=== PATIENT | male | born 1990 | race African-American/Black ===

== ENCOUNTER 2016-05-07 18:34 | Emergency (ER) | payer MEDICAID ==
[~2016-05-07] VITALS: Ht 188 cm; Wt 135.2 kg
[~2016-05-07 18:34] MED LIST: LEVAQUIN750 MG ORAL; NKM
[2016-05-07 18:43] VITALS: BP 120/81
--- NOTE | 2016-05-07 19:48 | Emergency Room Report ---
History of Present Illness General Chief Complaint: Pain Source: Patient Present Illness HPI 25-year-old male presents emergency department complaining of right-sided chest and shoulder pain 5/10 in severity x2 days. Patient reports that he has been having joint pain in multiple different sites that last 2-3 days and then migrate to an alternate joint x 1 week. Patient denies erythema, joint swelling, recent infection, fevers, chills fall or injury. Patient denies weakness. Patient denies shortness of breath or difficulty breathing. Patient denies past medical history, or rheumatology problems. Patient states that sickle trait runs in his family and he was tested several years ago and has trait but denies history of sickle cell crisis or family history of sickle cell crisis. Patient states that his pain will be resolved completely with over-the- counter 200 mg Motrin however it does return after about 6 hours.Pt states he took Motrin yesterday, and did not take more since. Patient denies dizziness, fatigue. Patient states his pain is exacerbated with palpation or movement of the affected joint. Patient states that he has had intermittent symptoms like this for several years now. patient does report recent upper respiratory illness one week ago that has completely resolved. Denies abdominal pain or rashes, denies dysuria, dark colored urine, hematuria, or eye pain. Denies numbness tingling or loss of sensation or gross motor movements of the extremities, incontinence of bowel or bladder. Denies Palpitations, LOC, AMS, dizziness, Changes in Vision, Sensation, paresthesias, or a sudden severe headache. Pt does report previous hx of daily MEJÍA's however he no longer has daily MEJÍA's. Allergies: Coded Allergies: No Known Allergies (Verified Allergy, Unknown, 01/27/11) Patient History Past Medical History: see triage record Past Surgical History: none Pertinent Family History: none Immunizations: UTD Reviewed Nursing Documentation: PMH: Agreed, PSxH: Agreed Nursing Documentation-PMH Past Medical History: No Stated History Review of Systems All Other Systems: negative except mentioned in HPI Physical Exam Vital Signs Date Time Temp Pulse Resp B/P Pulse Ox O2 Delivery O2 Flow Rate FiO2 05/07/16 18:38 98.1 110 16 120/81 99 Room Air Sp02 EP Interpretation: reviewed, normal, abnormal - Tachycardic on triage, however durring PE pulse is palpated at 96 BPM and ekg shows 99BPM General Appearance: no apparent distress, alert, GCS 15, non-toxic, obese Head: normocephalic, atraumatic Eyes: bilateral eye PERRL, bilateral eye normal inspection ENT: hearing grossly normal, normal pharynx, no angioedema, normal voice Neck: full range of motion, no meningismus, no bony tend, supple/symm/no masses Respiratory: chest non-tender, lungs clear, normal breath sounds, no rhonchi, no respiratory distress, no retraction, no accessory muscle use, no wheezing, speaking full sentences Cardiovascular #1: regular rate, rhythm, no edema Cardiovascular #2: 2+ radial (R), 2+ radial (L) Gastrointestinal: non tender, soft, no guarding, no rebound Rectal: deferred Genitourinary: normal inspection, no CVA tenderness Musculoskeletal: back normal, gait/station normal, normal range of motion, no calf tenderness, tender - TTp to the right anterior chest, the right deltoid, and the upper right side of the back in the trapezius area. no bruising noted, no appreciable bony TTP, pt. has FROM. Pain illiceted more with muscule use rather than from bone areas. no swelling noted. Pt. is NVI Neurologic: alert, oriented x3, responsive, motor strength/tone normal, sensory intact, speech normal Psychiatric: judgement/insight normal, memory normal, mood/affect normal, no suicidal/homicidal ideation Reflexes: 4+ bicep (R), 4+ bicep (L), 4+ tricep (R), 4+ tricep (L), 4+ knee (R) , 4+ knee (L) Skin: normal color, no rash, warm/dry, well hydrated, other - no bruising noted , no erythema Lymphatic: no adenopathy Medical Decision Making PA Attestation Dr. Osei is my supervising Physician whom patient management has been discussed with. Diagnostic Impression: Primary Impression: Joint pain Qualified Codes: M25.50 - Pain in unspecified joint Additional Impression: Pain in joint, multiple sites ER Course Pt. presents to the ED c/o right sided chest and shoulder pain x 2 days. 5/10 in severity. Patient reports that he has been having joint pain in multiple different sites that last 2-3 days and then migrate to an alternate joint x 1 week. Ddx considered but are not limited to Fracture, dislocation, contusion, Sprain/ Strain/Spasm, sickle cell crisis, ACS, PE Vital signs: are WNL, pt. is afebrile H&PE are most consistent with chronic intermittent joint pain of multiple sites , suspicious for chronic condition or rheumatological disease. pt. has hx of sickle cell trait. no evidence of acute fx at this time, pt. has no cardiac risk factors other than being over weight. Pt is non-tachycardic, non tachypneic and breathing does not exacerbate symptoms so PE is of low suspicion. ORDERS: - EK BPM NSR no acute ST changes, interpreted by Dr. Osei. ED INTERVENTIONS: - 600mg IBU - D/w pt. the importance of follow up. that in the ED we look for emergent conditions, that he should still follow up for further evaluation especially since his symptoms have been long standing they may indicate underlying illness/ disease. DISCHARGE: At this time pt. is stable for d/c to home. Will provide printed patient care instructions, and any necessary prescriptions. Care plan and follow up instructions have been discussed with the patient prior to discharge. EKG Diagnostic Results Rate: normal - 99 BPM Rhythm: NSR ST Segments: no acute changes ASA given to the pt in ED: No PA Scribe Text interpreted by Dr. Osei. Last Vital Signs Date Time Temp Pulse Resp B/P Pulse Ox O2 Delivery O2 Flow Rate FiO2 05/07/16 18:43 98.1 81 16 120/81 99 Room Air Status: improved Disposition: HOME, SELF-CARE Condition: Stable Scripts Ibuprofen* (MOTRIN*) 600 Mg Tablet 600 MG ORAL THREE TIMES A DAY, #30 TAB 0 Refills Prov: Macy Doherty 05/07/16 Patient Instructions: Joint Pain Additional Instructions: Take medications as directed. Follow up with PCP in days Return sooner to ED if new symptoms occur, or current symptoms become worse. Macy Doherty May 07, 2016 19:48
[2016-05-07] MEDS ORDERED: IBUPROFEN600 MG ORAL (19:53)
[2016-05-07 20:05] VITALS: BP 106/71
== END 2016-05-07 20:06 | disposition home or self-care (01) ==
LOC: EMR 19:10
DX: M25.50 Pain in unspecified joint (principal); D57.3 Sickle-cell trait
CPT/HCPCS: 99282

== ENCOUNTER 2016-05-30 10:51 | Emergency (ER) | payer MEDICAID ==
[~2016-05-30] VITALS: Ht 188 cm; Wt 133.8 kg
[~2016-05-30 10:51] MED LIST changes: +IBUPROFEN600 MG ORAL
[2016-05-30 11:06] VITALS: BP 113/80
[2016-05-30] MEDS ORDERED: AMOXICILLIN500 MG ORAL (11:39)
[2016-05-30] MEDS ORDERED: IBUPROFEN600 MG ORAL (11:39)
[2016-05-30 11:46] VITALS: BP 113/80
--- NOTE | 2016-05-31 08:20 | Emergency Room Report ---
History of Present Illness General Chief Complaint: Sore Throat Source: Patient Present Illness HPI Patient present with complaints of sore throat ongoing for the past 2 days Pain is worse with swallowing Rates the pain as a 4/10 He has some mild bodyache as well Denies any neck pain or photophobia Denies any chest pain or shortness of breath Denies any change in his voice Allergies: Coded Allergies: No Known Allergies (Verified Allergy, Unknown, 01/27/11) Patient History Past Medical History: see triage record Pertinent Family History: none Reviewed Nursing Documentation: PMH: Agreed, PSxH: Agreed Nursing Documentation-PMH Past Medical History: No Stated History Review of Systems All Other Systems: negative except mentioned in HPI Physical Exam Vital Signs Date Time Temp Pulse Resp B/P Pulse Ox O2 Delivery O2 Flow Rate FiO2 05/30/16 11:03 99.0 87 16 113/80 97 Room Air Sp02 EP Interpretation: reviewed, normal General Appearance: well appearing, no apparent distress Head: normocephalic, atraumatic Eyes: bilateral eye EOMI, bilateral eye PERRL ENT: pharyngeal erythema - Bilaterally, uvula midline, no signs of any peritonsillar abscess Neck: full range of motion, supple, thyroid normal Respiratory: chest non-tender, lungs clear Gastrointestinal: soft, no mass Musculoskeletal: normal inspection, back normal Neurologic: alert, oriented x3, responsive Skin: normal color, no rash Lymphatic: no adenopathy Medical Decision Making Diagnostic Impression: Primary Impression: pharyngitis ER Course Patient's findings appear to be in line with pharyngitis Likely bacterial given the appearance Patient was placed on antibiotics And will have initial conservative outpatient trial Multiple other differentials considered however patient had a fairly benign evaluation at this time Last Vital Signs Date Time Temp Pulse Resp B/P Pulse Ox O2 Delivery O2 Flow Rate FiO2 05/30/16 11:46 99.0 87 16 113/80 97 Room Air Status: improved Disposition: HOME, SELF-CARE Condition: Improved Scripts Ibuprofen* (MOTRIN*) 600 Mg Tablet 600 MG ORAL Q8H Y for For Pain, #20 TAB 0 Refills Prov: ERIC LONDON.OPreston 05/30/16 Amoxicillin* (AMOXIL*) 500 Mg Capsule 500 MG ORAL THREE TIMES A DAY, #21 CAP Prov: ERIC LONDON D.OPreston 2/10/17 Referrals: [facility],REFERRING (PCP) Patient Instructions: Pharyngitis, [id number] Additional Instructions: Patient is provided with the discharge instructions notified to follow up with primary doctor in the next 2-3 days otherwise return to the er with any worsening symptoms. Please note that this report is being documented using [employer] technology. This can lead to erroneous entry secondary to incorrect interpretation by the dictating instrument. ERIC LONDON D.O. May 31, 2016 08:20
== END 2016-05-30 11:48 | disposition home or self-care (01) ==
LOC: EMR 11:20
DX: J02.9 Acute pharyngitis, unspecified (principal)
CPT/HCPCS: 99284

== ENCOUNTER 2016-06-01 23:35 | Emergency (ER) | payer MEDICAID ==
[~2016-06-01] VITALS: Ht 188 cm; Wt 133.8 kg
[~2016-06-01 23:35] MED LIST changes: +AMOXICILLIN500 MG ORAL
[2016-06-02] VITALS: BP 137/84
--- NOTE | 2016-06-02 00:37 | Emergency Room Report ---
History of Present Illness General Chief Complaint: Upper Respiratory Illness Source: Patient Present Illness HPI Is a 25-year-old male with no past medical history. He was here couple days ago for coughing congestion. Was placed on amoxicillin. He came back because he's not completely better. He said that he coughed up some yellow phlegm. No fever or chills. No nausea no vomiting. No other complaint. Allergies: Coded Allergies: No Known Allergies (Verified Allergy, Unknown, 01/27/11) Patient History Past Medical History: none Past Surgical History: none Pertinent Family History: none Social History: Denies: smoking Immunizations: other Reviewed Nursing Documentation: PMH: Agreed, PSxH: Agreed Nursing Documentation-PMH Past Medical History: No Stated History Review of Systems Eye: Denies: blurred vision, eye pain ENT: Reports: nose congestion, Denies: ear pain, throat swelling Respiratory: Reports: cough, Denies: shortness of breath Cardiovascular: Denies: chest pain, palpitations Gastrointestinal: Denies: abdominal pain, diarrhea, nausea, vomiting Musculoskeletal: Denies: back pain, joint pain Skin: Denies: rash Neurological: Denies: headache, numbness Endocrine: Denies: increased thirst, increased urine Hematologic/Lymphatic: Denies: easy bruising All Other Systems: negative except mentioned in HPI Physical Exam Vital Signs Date Time Temp Pulse Resp B/P Pulse Ox O2 Delivery O2 Flow Rate FiO2 06/01/16 23:54 99.3 96 16 139/82 96 Room Air vitals normal. Sp02 EP Interpretation: reviewed, normal General Appearance: well appearing, no apparent distress, alert Head: normocephalic, atraumatic Eyes: bilateral eye EOMI, bilateral eye PERRL ENT: hearing grossly normal, normal pharynx Neck: full range of motion, supple, no meningismus Respiratory: chest non-tender, lungs clear, normal breath sounds Cardiovascular #1: regular rate, rhythm, no murmur Gastrointestinal: normal bowel sounds, non tender, no mass, no organomegaly, no bruit, non-distended Musculoskeletal: back normal, gait/station normal, normal range of motion Psychiatric: mood/affect normal Skin: warm/dry Medical Decision Making Diagnostic Impression: Primary Impression: Upper respiratory symptom Additional Impression: Bronchitis ER Course Patient presents with upper respiratory infection. Most likely viral. He looks well. Lungs are clear. No evidence of rest or distress. We'll discharge home with reassurance. Last Vital Signs Date Time Temp Pulse Resp B/P Pulse Ox O2 Delivery O2 Flow Rate FiO2 06/01/16 23:54 99.3 96 16 139/82 96 Room Air Status: improved Disposition: HOME, SELF-CARE Condition: Stable Patient Instructions: Upper Respiratory Infection, Adult Additional Instructions: Continue with your medications. Follow up with your doctor in 7 days. Return if worse. CHRISTINE REMY M.D. Jun 02, 2016 00:37
[2016-06-02 00:42] VITALS: BP 137/84
== END 2016-06-02 00:42 | disposition home or self-care (01) ==
LOC: EMR 06-02 00:10
DX: J20.9 Acute bronchitis, unspecified (principal)
CPT/HCPCS: 99282

== ENCOUNTER 2017-12-28 15:19 | Emergency (ER) | payer MEDICAID ==
[~2017-12-28] VITALS: Ht 188 cm; Wt 136.1 kg
[2017-12-28 15:29] VITALS: BP 136/84
--- NOTE | 2017-12-28 15:43 | Emergency Room Report ---
History of Present Illness General Chief Complaint: Abdominal Pain Source: Patient Present Illness HPI 27-year-old male patient presents ER complaining of right-sided flank pain and pain with urination past 2 weeks. Reports 2 weeks ago had anal intercourse with a partner, he was the insertive partner. Reports partners is without symptoms. Denies fever, chest pain, shortness of breath, vomiting. Reports testicular pain during this time. Denies testicular swelling. Denies pelvic rash or lesions. reports history of appendectomy.denies history of kidney stones. Denies history of STI. Denies penile discharge. denies history of HIV. Allergies: Coded Allergies: No Known Allergies (Verified Allergy, Unknown, 01/27/11) Patient History Past Medical History: see triage record Reviewed Nursing Documentation: PMH: Agreed; PSxH: Agreed Nursing Documentation-PMH Past Medical History: No Stated History Review of Systems All Other Systems: negative except mentioned in HPI Physical Exam Vital Signs Date Time Temp Pulse Resp B/P (MAP) Pulse Ox O2 Delivery O2 Flow Rate FiO2 12/28/17 15:21 98.4 99 18 136/84 97 Room Air 98.4 Sp02 EP Interpretation: reviewed, normal General Appearance: well appearing, no apparent distress, alert, GCS 15, non- toxic Head: normocephalic, atraumatic Eyes: bilateral eye normal inspection, bilateral eye PERRL ENT: hearing grossly normal, normal pharynx, no angioedema, normal voice, uvula midline, moist mucus membranes Neck: full range of motion Respiratory: lungs clear, normal breath sounds, no rhonchi, no respiratory distress, no accessory muscle use, no wheezing, speaking full sentences Cardiovascular #1: regular rate, rhythm, no edema Gastrointestinal: non tender, soft, no mass, non-distended, no guarding, no rebound Genitourinary: no CVA tenderness, penis normal - uncircumcised, scrotum normal , other - white yellow discharge noted from urethral opening; cremasteric reflex intact, no TTP, no testicular swelling Musculoskeletal: back normal, digits/nails normal, gait/station normal, normal range of motion, non-tender Neurologic: alert, oriented x3, responsive, motor strength/tone normal, sensory intact Psychiatric: mood/affect normal Skin: no rash Medical Decision Making PA Attestation Dr. Berman is my supervising Physician whom patient management has been discussed with. Diagnostic Impression: Primary Impression: Epididymitis ER Course Pt. presents to the ED c/o dysuria and right-sided flank pain. Ddx considered but are not limited to gonorrhea, chalmydia, cystitis, pylonephritis. 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 Vital signs: are WNL, pt. is afebrile Ordered UA and abx. ER COURSE: UA results unremarkable, Few bacteria, 2-4 RBCs,low suspicion for kidney stones , patient resting comfortably in bed, nontoxic appearing, no tenderness to palpation, no CVA tenderness on exam, low suspicion for kidney stones, does not require CT imaging at this time. On physical exam, discharge noted from penis, likely epididymitis. Will treat and cover for STI infection. Instructed to follow-up with STI clinic. No TTP of testicles on examination, no erythema or swelling, due to chronicity of symptoms, low suspicion for testicular torsion, does not require imaging at this time. Provided patient with Rocephin and Azithromycin in the ER. Informed patient medications will cover for gonorrhea and chlamydia due to patient being anal insertive, will provide patient with Rx for levofloxacin per up-to-date recommendations. Informed patient needs further follow-up evaluation and possible treatment of other sexual transmitted infections. Advised to use safe sex practices including but not limited to use of condoms. Avoid sexual activity for the next 2 weeks. Instructed patient to follow up with STI clinic and/or PCP for STI evaluation and further treatment as necessary. provided with contact information for STI clinics. Instructed patient to inform partners of needs for evaluation and treatment of possible infections. DISCHARGE: Rx provided levofloxacin 10 days, advised patient on possible side effect of tendinopathy. Patient is resting comfortably, in no acute distress, nontoxic appearing, talking without difficulty. Patient to take medications as instructed Will provide with patient care instructions and any necessary prescriptions. Care plan and follow-up instructions provided. Patient instructed to follow-up with primary care provider in 3 - 5 days. Patient questions asked and answered. Patient reports understanding and agreement to treatment plan. ER precautions given. Patient instructed to return to ER immediately for any new or worsening of symptoms including but not limited to increasing SOB, persistent fever. - Please note that this Emergency Department Report was dictated using [employer] technology software, occasionally this can lead to erroneous entry secondary to interpretation by the dictation equipment. Labs Test 12/28/17 15:30 Urine Color Yellow Urine Appearance Slightly cloudy Urine pH 5 (4.5-8.0) Urine Specific [place] 1.010 (1.005-1.035) Urine Protein 1+ (NEGATIVE) Urine Glucose (UA) Negative (NEGATIVE) Urine Ketones Negative (NEGATIVE) Urine Blood 2+ (NEGATIVE) Urine Nitrite Negative (NEGATIVE) Urine Bilirubin Negative (NEGATIVE) Urine Urobilinogen 1 MG/DL (0.0-1.0) Urine Leukocyte Esterase 3+ (NEGATIVE) Urine RBC 2-4 /HPF (0 - 0) Urine WBC 2-4 /HPF (0 - 0) Urine Squamous Epithelial Cells None /LPF (NONE/OCC) Urine Bacteria Few /HPF (NONE) Last Vital Signs Date Time Temp Pulse Resp B/P (MAP) Pulse Ox O2 Delivery O2 Flow Rate FiO2 12/28/17 15:29 98.4 18 136/84 97 Room Air 98.4 12/28/17 15:21 99 Disposition: HOME, SELF-CARE Condition: Stable Scripts Levofloxacin (LEVOFLOXACIN*) 500 Mg Tablet 500 MG ORAL DAILY for 10 Days, #20 TAB Prov: Cedrick Pan 12/28/17 Patient Instructions: Dysuria, Epididymitis, Sexually Transmitted Disease, Easy -to-Read Additional Instructions: Followup with primary care provider and followup with STI clinic for further evaluation and treatment. Alert sexual partners for need for evaluation and treatment. Wear condoms during sex. Avoid sexual activity for 2 weeks. Drink plenty of fluids. Patient questions asked and answered. ER precautions given, patient instructed to return to ER immediately for any new or worsening of symptoms. Cedrick Pan Dec 28, 2017 15:43
[2017-12-28] MEDS ORDERED: Azithromycin 250mg tab ORAL ONE (15:45)
[2017-12-28] MEDS ORDERED: Lidocaine 1% MPF 10mg/ml 5ml INJ ONE (15:45)
[2017-12-28 16:14] LABS: APPEARANCE,URINE SLIGHTLY CLOUDY; BILIRUBIN, URINE NEGATIVE (NEGATIVE); GLUCOSE, URINE (UA) NEGATIVE (NEGATIVE); KETONES,URINE NEGATIVE (NEGATIVE); LEUKOCYTE ESTERASE ,URINE 3+ (NEGATIVE); NITRITE,URINE NEGATIVE (NEGATIVE); PH,URINE 5 (4.5-8.0); PROTEIN,URINE 1+ (NEGATIVE); UROBILINOGEN,URINE 1 MG/DL (0.0-1.0)
[2017-12-28 16:25] LABS: COLOR,URINE YELLOW
[2017-12-28] MEDS ORDERED: LEVOFLOXACIN500 MG ORAL ×2 (16:39→16:40)
[2017-12-28 17:02] VITALS: BP 135/80
== END 2017-12-28 17:02 | disposition home or self-care (01) ==
LOC: EMR 15:45
DX: N45.1 Epididymitis (principal)
CPT/HCPCS: 81003; 96372; 96374; 99284; J0696; Q0144